=== PATIENT | female | born 1960 | race Caucasian/White ===

== ENCOUNTER → 2020-08-21 | Outpatient (CLI) | payer BC ==
--- NOTE | 2020-08-21 12:14 | MM ---
Reason for exam: screening (asymptomatic). Last mammogram was performed 7 years and 6 months ago. History: Patient is postmenopausal. Took hormonal contraceptives for 8 years. Taking estrogen for 6 months beginning at age 49. Physical Findings: A clinical breast exam by your physician is recommended on an annual basis and results should be correlated with mammographic findings. MG Screening Mammo w CAD Bilateral CC and MLO view(s) were taken. Prior study comparison: February 13, 2013, bilateral digital screening mammo w/CAD. The breast tissue is heterogeneously dense. This may lower the sensitivity of mammography. Finding: There are typically benign round, grouped/clustered calcifications in the left breast. There is no discrete abnormality. ASSESSMENT: Benign, BI-RAD 2 RECOMMENDATION: Routine screening mammogram of both breasts in 1 year.
== END | disposition home or self-care (01) ==
LOC: RADMAMWWP 09:43
PROVIDERS: ATTEND Internal Medicine
DX: Z12.31 Encounter for screening mammogram for malignant neoplasm of breast (principal)
CPT/HCPCS: 77067

== ENCOUNTER 2020-08-28 05:53 | Inpatient (IN) | payer BC, OTHER ==
[2020-08-28] MEDS ORDERED: PANTOPRAZOLE 40 MG/10 ML VIAL IVP STA (06:09)
[2020-08-28] MEDS ORDERED: SODIUM CHLORIDE 0.9% 500 ML 500 ML IV STA (06:09)
[2020-08-28] MEDS ORDERED: ASPIRIN 81 MG PO STA (06:32)
[2020-08-28 06:42] LABS: Basophils # (A) 0.1 k/uL (0-0.2); Basophils % (A) 1 %; Eosinophils # (A) 0.5 k/uL (0-0.7); Eosinophils % (A) 3 %; HGB 16.7 gm/dL (11.4-16.0); Lymphocytes % (A) 21 %; MCH 33.1 pg (25.0-35.0); MCHC 34.1 g/dL (31.0-37.0); MCV 97.1 fL (80.0-100.0); Mean Platelet Volume 7.5; Monocytes # (A) 0.7 k/uL (0-1.0); Monocytes % (A) 5 %; Neutrophils # (A) 10.2 k/uL (1.3-7.7); Neutrophils % (A) 69 %; Platelet Count 399 k/uL (150-450); RBC 5.05 m/uL (3.80-5.40); RDW 12.9 % (11.5-15.5); WBC 14.7 k/uL (3.8-10.6)
--- NOTE | 2020-08-28 06:45 | ED ---
Abdominal Pain HPI - General Chief Complaint: Abdominal Pain Stated Complaint: upper abd pain Time Seen by Provider: 08/28/20 06:00 Source: patient Mode of arrival: ambulatory Limitations: no limitations - History of Present Illness Initial Comments: 60yo female with history of HLD and cholecystectomy presenting for cc of epigastric abdominal pain x 1 day. Pt states that she has had epigastric pain that began yesterday morning after eating buttered toast. SHe states she does not have a gallbladder but the pain felt somewhat similar, she states she was also belching and felt like she had indigestion. Denies hx of indigestion/GERD. Patient states that the symptoms seeme to go away but were again present this AM. She states she was concerned and thus presented to the ER for further evaluation. Denies chest pressure, arm pain, jaw pain, vomiting, diarrhea. Denies fevers, lower abdominal pain, shortness of breath. Pain subsided on arrival. - Related Data Home Medications Medication Instructions Recorded Confirmed Atorvastatin [Lipitor] 10 mg PO HS 08/28/20 08/28/20 Allergies Allergy/AdvReac Type Severity Reaction Status Date / Time codeine AdvReac Nausea & Verified 08/28/20 08:13 Vomiting Review of Systems ROS Statement: Those systems with pertinent positive or pertinent negative responses have been documented in the HPI. ROS Other: All systems not noted in ROS Statement are negative. Past Medical History Past Medical History: Hyperlipidemia History of Any Multi-Drug Resistant Organisms: None Reported Past Surgical History: Cholecystectomy Past Psychological History: No Psychological Hx Reported Smoking Status: Current every day smoker Past Alcohol Use History: None Reported Past Drug Use History: None Reported General Exam - General Exam Comments Initial Comments: General: The patient is awake and alert, in no distress Eye: Pupils are equal, round and reactive to light, extra-ocular movements are intact. No nystagmus. There is normal conjunctiva bilaterally. No signs of icterus. Ears, nose, mouth and throat: There are moist mucous membranes and no oral lesions. Neck: The neck is supple, there is no tenderness or JVD. Cardiovascular: There is a regular rate and rhythm. No murmur, rub or gallop is appreciated. Respiratory: Lungs are clear to auscultation, respirations are non-labored, breath sounds are equal. No wheezes, stridor, rales, or rhonchi. Gastrointestinal: Soft, non-distended, epigastric tenderness to palpation of the abdomen, abdomen without masses or organomegaly noted. There is no rebound or guarding present. Musculoskeletal: Normal ROM, no tenderness. Strength 5/5. Sensation intact. Radial pulses equal bilaterally 2+. Neurological: A&O x 3. CN II-XII intact, There are no obvious motor or sensory deficits. Coordination appears grossly intact. Speech is normal. Skin: Skin is warm and dry and no rashes or lesions are noted. Psychiatric: Cooperative, appropriate mood & affect, normal judgment. Limitations: no limitations Course Vital Signs 08/28/20 08/28/20 06:00 07:22 Temperature 98.2 F 97.9 F Pulse Rate 92 70 Respiratory 18 18 Rate Blood Pressure 169/97 147/75 O2 Sat by Pulse 96 98 Oximetry - Reevaluation(s) Reevaluation #1: EKG immediately showed to my attending Dr Blue, who recommended a repeat EKG in 10 minutes. Pt did not have current symptoms 08/28/20 0623 Reevaluation #2: EKG repeated and reviewed with attending, Dr Blue. Recommended admission for serial troponins. Pt given aspirin. 08/28/20 0640 Reevaluation #3: Discussed with new attending Dr. Coley who reviewed both EKGs, consulted cardiology- 08/28/20 07:53 Medical Decision Making - Medical Decision Making 60yo female presenting for cc of epigastric pain, belching, indigestion. Patient EKG initially had findings concerning of ischemia, I reviewed the EKG with attending Dr. Blue, recommended repeat. Troponin elevated. CXR possible infiltrate. Heparin initiated, when reviewed the troponin discussed case with Dr. Coley who reviewed initial 2 EKGs. He consulted cardiology immediately, patient is to go to [facility]. Cardiology presented to the ER to evaluate patient at 8:00AM. - Lab Data Result diagrams: 08/28/20 06:29 08/28/20 06:29 Lab Results 08/28/20 08/28/20 08/28/20 Range/Units 06:29 06:29 06:29 WBC 14.7 H (3.8-10.6) k/uL RBC 5.05 (3.80-5.40) m/uL Hgb 16.7 H (11.4-16.0) gm/dL Hct 49.0 H (34.0-46.0) % MCV 97.1 (80.0-100.0) fL MCH 33.1 (25.0-35.0) pg MCHC 34.1 (31.0-37.0) g/dL RDW 12.9 (11.5-15.5) % Plt Count 399 (150-450) k/uL Neutrophils % 69 % Lymphocytes % 21 % Monocytes % 5 % Eosinophils % 3 % Basophils % 1 % Neutrophils # 10.2 H (1.3-7.7) k/uL Lymphocytes # 3.0 (1.0-4.8) k/uL Monocytes # 0.7 (0-1.0) k/uL Eosinophils # 0.5 (0-0.7) k/uL Basophils # 0.1 (0-0.2) k/uL Sodium 141 (137-145) mmol/L Potassium 4.5 (3.5-5.1) mmol/L Chloride 110 H (98-107) mmol/L Carbon Dioxide 23 (22-30) mmol/L Anion Gap 8 mmol/L BUN 17 (7-17) mg/dL Creatinine 0.74 (0.52-1.04) mg/dL Est GFR (CKD-EPI)AfAm >90 (>60 ml/min/1.73 sqM) Est GFR (CKD-EPI)NonAf 88 (>60 ml/min/1.73 sqM) Glucose 134 H (74-99) mg/dL Calcium 9.9 (8.4-10.2) mg/dL Total Bilirubin 0.5 (0.2-1.3) mg/dL AST 34 (14-36) U/L ALT 41 H (4-34) U/L Alkaline Phosphatase 91 (38-126) U/L Troponin I (0.000-0.034) ng/mL Total Protein 7.3 (6.3-8.2) g/dL Albumin 4.6 (3.5-5.0) g/dL Amylase 48 (30-110) U/L Lipase 77 (23-300) U/L Urine Color Yellow Urine Appearance Cloudy H (Clear) Urine pH 5.0 (5.0-8.0) Ur Specific [place] 1.020 (1.001-1.035) Urine Protein Negative (Negative) Urine Glucose (UA) Negative (Negative) Urine Ketones Negative (Negative) Urine Blood Small H (Negative) Urine Nitrite Negative (Negative) Urine Bilirubin Negative (Negative) Urine Urobilinogen <2.0 (<2.0) mg/dL Ur Leukocyte Esterase Negative (Negative) Urine RBC 1 (0-5) /hpf Urine WBC 2 (0-5) /hpf Ur Squamous Epith Cells 6 H (0-4) /hpf Urine Bacteria Occasional H (None) /hpf Urine Mucus Rare H (None) /hpf 08/28/20 Range/Units 06:29 WBC (3.8-10.6) k/uL RBC (3.80-5.40) m/uL Hgb (11.4-16.0) gm/dL Hct (34.0-46.0) % MCV (80.0-100.0) fL MCH (25.0-35.0) pg MCHC (31.0-37.0) g/dL RDW (11.5-15.5) % Plt Count (150-450) k/uL Neutrophils % % Lymphocytes % % Monocytes % % Eosinophils % % Basophils % % Neutrophils # (1.3-7.7) k/uL Lymphocytes # (1.0-4.8) k/uL Monocytes # (0-1.0) k/uL Eosinophils # (0-0.7) k/uL Basophils # (0-0.2) k/uL Sodium (137-145) mmol/L Potassium (3.5-5.1) mmol/L Chloride (98-107) mmol/L Carbon Dioxide (22-30) mmol/L Anion Gap mmol/L BUN (7-17) mg/dL Creatinine (0.52-1.04) mg/dL Est GFR (CKD-EPI)AfAm (>60 ml/min/1.73 sqM) Est GFR (CKD-EPI)NonAf (>60 ml/min/1.73 sqM) Glucose (74-99) mg/dL Calcium (8.4-10.2) mg/dL Total Bilirubin (0.2-1.3) mg/dL AST (14-36) U/L ALT (4-34) U/L Alkaline Phosphatase (38-126) U/L Troponin I 0.839 H* (0.000-0.034) ng/mL Total Protein (6.3-8.2) g/dL Albumin (3.5-5.0) g/dL Amylase (30-110) U/L Lipase (23-300) U/L Urine Color Urine Appearance (Clear) Urine pH (5.0-8.0) Ur Specific [place] (1.001-1.035) Urine Protein (Negative) Urine Glucose (UA) (Negative) Urine Ketones (Negative) Urine Blood (Negative) Urine Nitrite (Negative) Urine Bilirubin (Negative) Urine Urobilinogen (<2.0) mg/dL Ur Leukocyte Esterase (Negative) Urine RBC (0-5) /hpf Urine WBC (0-5) /hpf Ur Squamous Epith Cells (0-4) /hpf Urine Bacteria (None) /hpf Urine Mucus (None) /hpf Disposition Clinical Impression: Epigastric pain, NSTEMI (non-ST elevated myocardial infarction) Disposition: ADMITTED IP TO THIS [facility] Condition: Serious Is patient prescribed a controlled substance at d/c from ED?: No Referrals: Penny Chowdary MD [Primary Care Provider] - 1-2 days Time of Disposition: 07:51 Decision to Admit Reason: Admit from EC Decision Date: 08/28/20 Decision Time: 07:51
[2020-08-28 06:50] LABS: Appearance,Urine Cloudy (Clear); Bacteria,Urine Occasional /hpf; Bilirubin,Urine Negative (Negative); Blood,Urine Small (Negative); Color,Urine Yellow; Glucose,Urine (UA) Negative (Negative); Ketones,Urine Negative (Negative); Leukocyte Esterase,Urine Negative (Negative); Mucus,Urine Rare /hpf; Nitrite,Urine Negative (Negative); Protein,Urine Negative (Negative); RBC,Urine 1 /hpf (0-5); Squamous Epithelial Cell,Urine 6 /hpf (0-4); Urobilinogen,Urine <2.0 mg/dL (<2.0); WBC,Urine 2 /hpf (0-5)
[2020-08-28 06:51] LABS: ALT 41 U/L (4-34); AST 34 U/L (14-36); African American GFR (CKD) >90 (>60 ml/min/1.73 sqM); Albumin 4.6 g/dL (3.5-5.0); Alkaline Phosphatase 91 U/L (38-126); Amylase 48 U/L (30-110); Anion Gap 8 mmol/L; Blood Urea Nitrogen 17 mg/dL (7-17); Calcium 9.9 mg/dL (8.4-10.2); Carbon Dioxide 23 mmol/L (22-30); Chloride 110 mmol/L (98-107); Glucose 134 mg/dL (74-99); Non-African American GFR(CKD) 88 (>60 ml/min/1.73 sqM); Potassium 4.5 mmol/L (3.5-5.1); Sodium 141 mmol/L (137-145); Total Bilirubin 0.5 mg/dL (0.2-1.3); Total Protein 7.3 g/dL (6.3-8.2)
--- NOTE | 2020-08-28 07:18 | XR ---
EXAMINATION TYPE: XR chest 2V DATE OF EXAM: 08/28/2020 COMPARISON: None INDICATION: Epigastric pain TECHNIQUE: Frontal and lateral views of the chest are obtained. FINDINGS: The heart size is borderline prominent. The pulmonary vasculature is normal. Minimal subsegmental atelectasis may be at the right base. Lungs are otherwise clear.. IMPRESSION: 1. Suggestion of minimal infiltrate at the right lung base. Consider subsegmental atelectasis.
[2020-08-28] MEDS: SODIUM CHLORIDE 0.9% 1,000 ML IV SCH ×2 (07:35→21:18)
[2020-08-28] MEDS ORDERED: HEPARIN SODIUM,PORCINE 5,000 UNIT/ML 1 ML VIAL IV PRN (07:47)
[2020-08-28] MEDS ORDERED: HEPARIN SODIUM,PORCINE 5,000 UNIT/ML 1 ML VIAL IV ONE (07:47)
[2020-08-28] MEDS ORDERED: NITROGLYCERIN OINT 1 INCH/GM PACKET TOPICAL STA (07:49)
[2020-08-28] MEDS ORDERED: HEPARIN SOD,PORK IN 0.45% NACL 25,000 UNIT in 0.45% NACL 1 250ML.BAG IV SCH (08:00)
--- NOTE | 2020-08-28 08:02 | CT ---
EXAMINATION TYPE: CT abdomen pelvis w con DATE OF EXAM: 08/28/2020 COMPARISON: None INDICATION: Heartburn, epigastric pain DLP: 1327.4 mGycm, Automated exposure control for dose reduction was used. CONTRAST: 100 mL of Isovue 300. Study performed without Oral Contrast TECHNIQUE: Axial images were obtained from above the diaphragm to the pubic rami in the axial plane a t 5 mm thick sections. Reconstructed images are reviewed on the computer in the coronal plane. FINDINGS: Limited CT sections are obtained the lung bases. The lung bases are clear. CT ABDOMEN: Liver: Normal Spleen: Normal Pancreas: Normal Adrenal glands: The adrenal glands are normal. Gallbladder: Surgically absent Kidneys: No masses are evident. No hydronephrosis is present. No cysts are present. Delayed images were obtained through the kidneys, which remain unremarkable. Aorta: Vascular calcification is within the aorta. Inferior vena cava: Normal. CT PELVIS: Loops of bowel within the abdomen and pelvis are normal. Scattered diverticuli are present without ac [place] diverticulitis. No adjacent inflammatory changes are evident. Study is without oral contrast l imiting bowel evaluation. Appendix: Normal as visualized. Urinary bladder: Normal. Genitourinary structures: Uterus and ovaries are not identified. Osseous structures: No suspicious lytic or sclerotic lesions. IMPRESSIONS: 1. Diverticulosis without acute diverticulitis. 2. No suspicious abnormality to account for the gastric pain
[2020-08-28] MEDS ORDERED: NITROGLYCERIN SL TABS 0.4 MG TAB SUBLINGUAL PRN ×2 (08:06→09:40)
[2020-08-28] MEDS ORDERED: ATORVASTATIN 80 MG TAB PO STA (08:15)
[2020-08-28] MEDS ORDERED: ALPRAZolam 0.5 MG TAB PO PRN (08:15)
[2020-08-28] MEDS ORDERED: ALPRAZolam 0.25 MG TAB PO PRN (08:15)
[2020-08-28] MEDS ORDERED: SODIUM CHLORIDE 0.9% 1,000 ML in EMPTY BAG 1 BAG IV ONE (08:15)
[2020-08-28] MEDS ORDERED: IV FLUID CONTINUATION 1,000 ML IV ONE (08:30)
[2020-08-28] MEDS ORDERED: LIDOCAINE 1% INJ 10MG/ML (20 ML MDV) ONE (08:42)
[2020-08-28] MEDS ORDERED: fentaNYL (PF) 50 MCG/ML 2 ML AMP ONE (08:43)
[2020-08-28] MEDS ORDERED: VERAPAMIL 2.5 MG/ML 2 ML AMP ONE ×2 (08:43→09:07)
[2020-08-28] MEDS: fentaNYL (PF) 50 MCG/ML 2 ML AMP IV ONE ×2 (08:48→09:05)
[2020-08-28] MEDS: MIDAZOLAM 2 MG/2 ML VIAL IV ONE ×2 (08:48→09:05)
[2020-08-28] MEDS ORDERED: LIDOCAINE 1% INJ 10MG/ML (20 ML MDV) SQ ONE (08:48)
[2020-08-28] MEDS: VERAPAMIL SYRINGE (5 MG/10 ML) INTRAARTER ONE ×2 (08:50→09:03)
[2020-08-28] MEDS ORDERED: TICAGRELOR 90 MG TAB ONE (09:02)
[2020-08-28] MEDS ORDERED: TICAGRELOR 90 MG TAB PO ONE (09:06)
[2020-08-28] MEDS ORDERED: HEPARIN SODIUM 1,000 UN/ML (10ML VL) ONE (09:09)
--- NOTE | 2020-08-28 09:16 | P.CARDCATH ---
Date of Procedure: 08/28/20 Preoperative Diagnosis: Acute anterior wall myocardial infarction Postoperative Diagnosis: Critical stenosis involving the mid LAD Procedure(s) Performed: Left heart catheterization without left ventriculography Description of Procedure: HISTORY: This is a 60-year-old female with history of hypertension who came to the emergency room with complaints of chest pains and epigastric pain starting around 10 PM last night. Her initial EKG showed ST elevations in the anterior leads suggestive of acute myocardial infarction. Patient was treated with nitrates and subsequently EKG showed improvement in a stable segment elevation. Patient however continued to have pain and troponin was abnormal with persistent ST-T changes. Patient is advised to have a cardiac catheterization for definitive diagnosis CONSENT:I have discussed the risks, benefits and alternative therapies for the above-mentioned procedure and for both sedation/analgesia as well as necessary blood product administration, if indicated, as they pertain to this patient. The patient has indicated understanding and acceptance of the risks and procedures discussed. PROCEDURE: Patient was brought to the lab in a fasting state. Patient was given some IV sedation. The right wrist is infiltrated with lidocaine and right radial artery was entered using Seldinger technique. A 6-[place] catheter was left in place and selective coronary arteriography was performed. Patient tolerated the procedure well. No immediate complications were noted . Patient went on to have stent placement of the left anterior descending coronary artery Conscious Sedation: Versed 1mg Fentanyl 25 g Duration 13minutes HEMODYNAMICS: The aortic pressure is about 120/65. The left ventricular end- diastolic pressure was not measured SELECTIVE CORONARY ARTERIOGRAPHY: LEFT MAIN: Normal length and free of occlusive disease THE LEFT ANTERIOR DESCENDING CORONARY ARTERY: . This is a good caliber vessel with a 99% stenosis in the midportion THE LEFT CIRCUMFLEX AND IS CORONARY ARTERY: . This is a good caliber vessel. Free of occlusive disease THE RIGHT CORONARY ARTERY: Is a good caliber and codominant vessel without any significant focal occlusive disease LEFT VENTRICULOGRAPHY: Not performed FINAL IMPRESSION: . Critical lesion involving the mid LAD PLAN: Stent placement of the LAD PROGNOSIS: Fair
[2020-08-28] MEDS ORDERED: IOPAMIDOL-370 125ML BTL INJ ONE (09:29)
[2020-08-28] MEDS ORDERED: NITROGLYCERIN 1000MCG/10ML SYRINGE INTRACORON ONE (09:30)
[2020-08-28] MEDS ORDERED: IOPAMIDOL-370 100ML BTL INJ ONE (09:34)
[2020-08-28] MEDS ORDERED: MAG HYDROX/AL HYDROX/SIMETH 30 ML CUP PO PRN (09:40)
[2020-08-28] MEDS ORDERED: ZOLPIDEM 5 MG TAB PO PRN (09:40)
[2020-08-28] MEDS ORDERED: ATROPINE SULFATE 0.1 MG/ML 10ML SYRINGE IV PRN (09:40)
[2020-08-28] MEDS ORDERED: RX INFO: IV CONTRAST WAS GIVEN 1 EACH MISC MISCELLANE PRN (09:40)
[2020-08-28 10:16] LABS: Glucose,Whole Blood 111 mg/dL (75-99)
--- NOTE | 2020-08-28 10:39 | P.CRDCN ---
History of Present Illness History of present illness: HISTORY OF PRESENTING ILLNESS This is a pleasant 60-year-old female past medical history significant for dyslipidemia and chronic nicotine dependence. She does not follow with a ca rdiologist for any reason. We have been asked to see in consultation for chest pain. She states yesterday morning after eating a piece of toast she developed a pain in the epigastric region and under the left breast. It was described as a pressure type sensation. She does suffer from reflux disease intermittently and has had her gallbladder out previously. Typically she can drink a glass of milk and her symptoms will subside. The milk did help somewhat but not entirely. She also noticed frequent belching throughout the day. She felt some radiation through to her back.She denies associated shortness of breath, dizziness or palpitations. She did have some mild nausea. Her pain persisted through the night prompting her bring her to the hospital this morning. On arrival she was having ongoing epigastric discomfort and was given IV Protonix that did mildly improve her symptoms. Initial EKG on admission revealed sinus mechanism with mild ST elevations in the anterior leads. Repeat EKG was obtained 15 minutes later the mouth elevations have improved. Chest x-ray reveals a minimal infiltrate at the right lung base possibly related to atelectasis. CT abdomen pelvis reveals diverticulosis without acute diverticulitis and no suspicious abnormality. Laboratory data reviewed, WBC 14.7, hemoglobin 16.7, platelets 399, sodium 141, potassium 4.5, creatinine 0.74. Daily medications include atorvastatin 10 mg at bedtime. She states she has never had a heart catheterization or stress test in the past. She has a sister who needs a valve replaced but unfortunately has lung cancer. REVIEW OF SYSTEMS At the time of my exam: CONSTITUTIONAL: Denies fever or chills. CARDIOVASCULAR: Denies chest pain, shortness of breath, orthopnea, PND or palpitations. RESPIRATORY: Denies cough. GASTROINTESTINAL: Complains of epigastric pain. Denies abdominal pain, diarrhea, constipation, nausea or vomiting. MUSCULOSKELETAL: Denies myalgias. NEUROLOGIC: Denies numbness, tingling or weakness. ENDOCRINE: Denies fatigue, weight change, polydipsia or polyurina. GENITOURINARY: Denies burning, hematuria or urgency with micturation. HEMATOLOGIC: Denies history of anemia or bleeding. PHYSICAL EXAMINATION Blood pressure 147/100 heart rate 87 afebrile and maintaining oxygen saturation on room air. CONSTITUTIONAL: No apparent distress. HEENT: Head is normocephalic. Pupils are equal, round. Sclerae anicteric. Mucous membranes of the mouth are moist. No JVD. No carotid bruit. CHEST EXAMINATION: Lungs are clear to auscultation. No chest wall tenderness is noted on palpation or with deep breathing. HEART EXAMINATION: Regular rate and rhythm. S1, S2 heard. No murmurs, gallops or rub. ABDOMEN: Soft, nontender. Positive bowel sounds. EXTREMITIES: 2+ peripheral pulses, no lower extremity edema and no calf tenderness. NEUROLOGIC EXAMINATION: Patient is awake, alert and oriented x3. ASSESSMENT ST-elevated myocardial infarction Leukocytosis Dyslipidemia Chronic nicotine dependence PLAN Recommend prompt transfer to the [facility] for cardiac catheterization. I have discussed the risks, benefits and alternative therapies for the above-mentioned procedure and for both sedation/analgesia as well as necessary blood product administration, if indicated, as they pertain to this patient. The patient has indicated understanding and acceptance of the risks and procedures discussed. Questions have been answered appropriately to the patient and her who is at the bedside. Aspirin was given on admission and heparin infusion currently running. Give atorvastatin 80 mg x1 now. Obtain 2D echocardiogram and doppler study to assess cardiac structure and function. Further recommendations to follow based on clinical course. Thank you kindly for this consultation. Nurse Practitioner note has been reviewed, I agree with a documented findings and plan of care. Patient was seen and examined. Past Medical History Past Medical History: Hyperlipidemia History of Any Multi-Drug Resistant Organisms: None Reported Past Surgical History: Cholecystectomy Past Psychological History: No Psychological Hx Reported Smoking Status: Current every day smoker Past Alcohol Use History: None Reported Past Drug Use History: None Reported Medications and Allergies Home Medications Medication Instructions Recorded Confirmed Type Atorvastatin [Lipitor] 10 mg PO HS 08/28/20 08/28/20 History Allergies Allergy/AdvReac Type Severity Reaction Status Date / Time codeine AdvReac Nausea & Verified 08/28/20 08:13 Vomiting Physical Exam Vitals: Vital Signs Temp Pulse Resp BP Pulse Ox 08/28/20 10:02 87 18 147/100 96 08/28/20 08:17 100 20 140/83 95 08/28/20 07:22 97.9 F 70 18 147/75 98 08/28/20 06:00 98.2 F 92 18 169/97 96 Intake and Output 10/14/20 10/15/20 10/15/20 22:59 06:59 14:59 Intake Total 500 Balance 500 Intake: IV 500 Other: Weight 90.174 kg Results 08/28/20 06:29 08/28/20 06:29 Cardiac Enzymes 08/28/20 08/28/20 Range/Units 06:29 06:29 AST 34 (14-36) U/L Troponin I 0.839 H* (0.000-0.034) ng/mL CBC 08/28/20 Range/Units 06:29 WBC 14.7 H (3.8-10.6) k/uL RBC 5.05 (3.80-5.40) m/uL Hgb 16.7 H (11.4-16.0) gm/dL Hct 49.0 H (34.0-46.0) % Plt Count 399 (150-450) k/uL Comprehensive Metabolic Panel 08/28/20 Range/Units 06:29 Sodium 141 (137-145) mmol/L Potassium 4.5 (3.5-5.1) mmol/L Chloride 110 H (98-107) mmol/L Carbon Dioxide 23 (22-30) mmol/L BUN 17 (7-17) mg/dL Creatinine 0.74 (0.52-1.04) mg/dL Glucose 134 H (74-99) mg/dL Calcium 9.9 (8.4-10.2) mg/dL AST 34 (14-36) U/L ALT 41 H (4-34) U/L Alkaline Phosphatase 91 (38-126) U/L Total Protein 7.3 (6.3-8.2) g/dL Albumin 4.6 (3.5-5.0) g/dL Current Medications Generic Name Dose Route Start Last Admin Trade Name Freq PRN Reason Stop Dose Admin Al Hydroxide/Mg Hydroxide 30 ml 08/28/20 09:40 Mag Hydrox/Al Hydrox/Simeth 30 Ml Cup PO Q4HR PRN Heartburn Alprazolam 0.25 mg 08/28/20 08:15 Alprazolam 0.25 Mg Tab PO Q6HR PRN Mild Anxiety Alprazolam 0.5 mg 08/28/20 08:15 Alprazolam 0.5 Mg Tab PO Q6HR PRN Moderate Anxiety Aspirin 81 mg 08/29/20 09:00 Aspirin 81 Mg PO DAILY [facility] Atorvastatin Calcium 80 mg 08/28/20 21:00 Atorvastatin 80 Mg Tab PO HS [place] Atropine Sulfate 0.5 mg 08/28/20 09:40 Atropine Sulfate 0.1 Mg/Ml 10ml Syringe IV ONCE PRN Symptomatic Bradycardia Sodium Chloride 1,000 mls @ 75 mls/hr 08/28/20 07:00 08/28/20 07:35 Saline 0.9% IV 75 mls/hr .[id number] [place] Administration Sodium Chloride 1,000 ml/ IV 1,000 mls @ 90.174 mls/hr 08/28/20 08:15 08/28/20 10:09 Solution IV 08/28/20 19:20 Not Given .Q11H6M ONE 1 ML/KG/HR Metoprolol Tartrate 25 mg 08/28/20 21:00 Metoprolol Tartrate 25 Mg Tab PO BID [facility] Miscellaneous Information 1 each 08/28/20 09:40 Rx Info: Iv Contrast Was Given 1 Each Misc MISCELLANE 08/30/20 09:40 DAILY PRN Per Protocol Nitroglycerin 0.4 mg 08/28/20 09:40 Nitroglycerin Sl Tabs 0.4 Mg Tab SUBLINGUAL Q5M PRN Chest Pain Ticagrelor 90 mg 08/28/20 21:00 Ticagrelor 90 Mg Tab PO BID [facility] Zolpidem Tartrate 5 mg 08/28/20 09:40 Zolpidem 5 Mg Tab PO HS PRN Insomnia Intake and Output 08/27/20 08/28/20 08/28/20 22:59 06:59 14:59 Intake Total 500 Balance 500 Intake: IV 500 Other: Weight 90.174 kg 08/28/20 06:29 08/28/20 06:29
--- NOTE | 2020-08-28 11:24 | P.HPIM ---
History of Present Illness This is a pleasant 60 years old female with past medical history of hyperlipidemia and cigarette smoker. Presents because of Joleen sensation since yesterday which became more severe overnight associated with some numbness in her extremity so she came to the emergency room when she found to have a STEMI and "has been called and patient went emergently to cardiac cath. She is status post stent placement to the LAD. Postprocedure she was in the ICU, resting comfortably in bed with at bedside, she is a pleasant with no chest pain or heartburn. No shortness of breath or any other symptom. She admits to smoking about one pack per day, patient consult on was to quit but she declined nicotine patch. No alcohol or illicit drugs Vitals and labs are reviewed. She has mild leukocytosis of 14.7 K. Review of Systems CONSTITUTIONAL: No fever, no malaise, no fatigue. HEENT: No recent visual problems or hearing problems. Denied any sore throat. CARDIOVASCULAR: No orthopnea, PND, no palpitations, no syncope. PULMONARY: No shortness of breath, no cough, no hemoptysis. GASTROINTESTINAL: No diarrhea, no nausea, no vomiting, no abdominal pain. Normoactive bowel sounds. NEUROLOGICAL: No headaches, no weakness, no numbness. HEMATOLOGICAL: Denies any bleeding or petechiae. GENITOURINARY: Denies any burning micturition, frequency, or urgency. MUSCULOSKELETAL/RHEUMATOLOGICAL: Denies any joint pain, swelling, or any muscle pain. ENDOCRINE: Denies any polyuria or polydipsia. Past Medical History Past Medical History: Hyperlipidemia History of Any Multi-Drug Resistant Organisms: None Reported Past Surgical History: Cholecystectomy Past Psychological History: No Psychological Hx Reported Smoking Status: Current every day smoker Past Alcohol Use History: None Reported Past Drug Use History: None Reported Medications and Allergies Home Medications Medication Instructions Recorded Confirmed Type Atorvastatin [Lipitor] 10 mg PO HS 08/28/20 08/28/20 History Allergies Allergy/AdvReac Type Severity Reaction Status Date / Time codeine AdvReac Nausea & Verified 08/28/20 08:13 Vomiting Physical Exam Vitals: Vital Signs Temp Pulse Resp BP Pulse Ox 08/28/20 10:02 87 18 147/100 96 08/28/20 08:17 100 20 140/83 95 08/28/20 07:22 97.9 F 70 18 147/75 98 08/28/20 06:00 98.2 F 92 18 169/97 96 Intake and Output 08/27/20 08/28/20 08/28/20 22:59 06:59 14:59 Intake Total 500 Balance 500 Intake: IV 500 Other: Weight 90.174 kg GENERAL: The patient is alert and oriented x3, not in any acute distress. Well developed, well nourished. HEENT: Pupils are round and equally reacting to light. EOMI. No scleral icterus. No conjunctival pallor. Normocephalic, atraumatic. No pharyngeal erythema. No thyromegaly. CARDIOVASCULAR: S1 and S2 present. No murmurs, rubs, or gallops. PULMONARY: Chest is clear to auscultation, no wheezing or crackles. ABDOMEN: Soft, nontender, nondistended, normoactive bowel sounds. No palpable organomegaly. MUSCULOSKELETAL: No joint swelling or deformity. EXTREMITIES: No cyanosis, clubbing, or pedal edema. NEUROLOGICAL: Gross neurological examination did not reveal any focal deficits. SKIN: No rashes. No petechiae Results CBC & Chem 7: 08/28/20 06:29 08/28/20 06:29 Labs: Abnormal Lab Results - Last 24 Hours (Table) 08/28/20 08/28/20 08/28/20 Range/Units 06:29 06:29 06:29 WBC 14.7 H (3.8-10.6) k/uL Hgb 16.7 H (11.4-16.0) gm/dL Hct 49.0 H (34.0-46.0) % Neutrophils # 10.2 H (1.3-7.7) k/uL Chloride 110 H (98-107) mmol/L Glucose 134 H (74-99) mg/dL POC Glucose (mg/dL) (75-99) mg/dL ALT 41 H (4-34) U/L Troponin I (0.000-0.034) ng/mL Urine Appearance Cloudy H (Clear) Urine Blood Small H (Negative) Ur Squamous Epith Cells 6 H (0-4) /hpf Urine Bacteria Occasional H (None) /hpf Urine Mucus Rare H (None) /hpf 08/28/20 08/28/20 Range/Units 06:29 10:15 WBC (3.8-10.6) k/uL Hgb (11.4-16.0) gm/dL Hct (34.0-46.0) % Neutrophils # (1.3-7.7) k/uL Chloride (98-107) mmol/L Glucose (74-99) mg/dL POC Glucose (mg/dL) 111 H (75-99) mg/dL ALT (4-34) U/L Troponin I 0.839 H* (0.000-0.034) ng/mL Urine Appearance (Clear) Urine Blood (Negative) Ur Squamous Epith Cells (0-4) /hpf Urine Bacteria (None) /hpf Urine Mucus (None) /hpf Assessment and Plan Assessment: Acute STEMI, status post cardiac cath and stent placement in the LAD:Continue with dual anti-platelet therapy and cardiology consult recommendation Leukocytosis, mostly reactive secondary to above Nicotine dependence Hyperlipidemia DVT prophylaxis, subcutaneous heparin GI prophylaxis: Pepcid
[2020-08-28 12:02] VITALS: BMI 33.0
--- NOTE | 2020-08-28 12:46 | ECHOF ---
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 do after cath MEASUREMENTS -------- HEIGHT: 165.1 cm WEIGHT: 89.8 kg BP: RVIDd: 2.7 cm (< 3.3) IVSd: 0.8 cm (0.6 - 1.1) LVIDd: 5.0 cm (3.9 - 5.3) LVPWd: 1.0 cm (0.6 - 1.1) IVSs: 1.3 cm LVIDs: 4.2 cm LVPWs: 1.0 cm LA Diam: 4.0 cm (2.7 - 3.8) LAESV Index (A-L): 20.05 ml/m Ao Diam: 2.7 cm (2.0 - 3.7) AV Cusp: 1.5 cm (1.5 - 2.6) MV EXCURSION: 15.488 mm (> 18.000) MV EF SLOPE: 77 mm/s (70 - 150) EPSS: 0.8 cm MV E Jose: 0.80 m/s MV DecT: 175 ms MV A Jose: 1.17 m/s MV E/A Ratio: 0.69 RAP: 5.00 mmHg RVSP: 35.66 mmHg FINDINGS -------- Sinus rhythm. This was a techncally difficult study with suboptimal views, , Definity utilized for enhancement of i mages. The left ventricular size is normal. Left ventricular wall thickness is normal. Overall left vent ricular systolic function is moderately impaired with, an EF between 35 - 40 %. Mid anterior LV wal l motion is hypokinetic. Mid anteroseptal LV wall motion is hypokinetic. Apical anterior LV wal l motion is hypokinetic. Apical lateral LV wall motion is hypokinetic. Apical inferior LV wall motion is hypokinetic. Apical septum LV wall motion is hypokinetic. The right ventricle is normal in size. Normal LA size by volume 22+/-6 ml/m2. The right atrial size is normal. There is mild aortic valve sclerosis. There is no evidence of aortic regurgitation. Mild mitral annular calcification present. Mild mitral regurgitation is present. Mild tricuspid regurgitation present. Right ventricular systolic pressure is normal at < 35 mmHg. Trace/mild (physiologic) pulmonic regurgitation. The aortic root size is normal. Echo free space indicative of a pericardial fat pad. CONCLUSIONS -------- 1. Left ventricular wall thickness is normal. 2. Overall left ventricular systolic function is moderately impaired with, an EF between 35 - 40 %. 3. Mid anterior LV wall motion is hypokinetic. 4. Mid anteroseptal LV wall motion is hypokinetic. 5. Apical anterior LV wall motion is hypokinetic. 6. Apical lateral LV wall motion is hypokinetic. 7. Apical inferior LV wall motion is hypokinetic. 8. Apical septum LV wall motion is hypokinetic. 9. Normal LA size by volume 22+/-6 ml/m2. 10. There is mild aortic valve sclerosis. 11. Mild mitral annular calcification present. 12. Mild mitral regurgitation is present. 13. Mild tricuspid regurgitation present. 14. Trace/mild (physiologic) pulmonic regurgitation. 15. Echo free space indicative of a pericardial fat pad. RECREATIONAL ASSISTANT: Marielle Butt RDCS
[2020-08-28] MEDS: lisinopriL 5 MG TAB PO SCH (14:59)
[2020-08-28] MEDS: ATORVASTATIN 80 MG TAB PO SCH (20:00)
[2020-08-28] MEDS: HEPARIN SODIUM,PORCINE 5,000 UNIT/ML 1 ML VIAL SQ SCH (20:00)
[2020-08-28] MEDS: TICAGRELOR 90 MG TAB PO SCH (20:00)
[2020-08-28] MEDS: FAMOTIDINE 20 MG TAB PO SCH (20:01)
[2020-08-28] MEDS: METOPROLOL TARTRATE 25 MG TAB PO SCH (20:01)
--- NOTE | 2020-08-28 21:20 | P.PRCINT ---
Percutaneous Coronary Int. - Percutaneous Coronary Intervention Percutaneous Coronary Intervention: Description of Procedure: Procedures performed: Left coronary angiography, PCI of the mid LAD with a 2.5 x 15 mm Xience RITCHIE INDICATION: NSTEMI, initial ST elevation with reported improvement HISTORY: Patient is a 60 year old female who presented with abdominal pain. 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 Diagnostic heart catheterization was performed which showed mid LAD 95% stenosis and therefore I was asked to perform PCI of mid LAD. PROCEDURE: After the risks, benefits and alternatives of the above mentioned procedure explained in detail with the patient, informed consent was obtained. Patient was already in the catheterization lab and prepped and draped in usual fashion. A 6Fr sheath had already been placed in the right radial artery. A decision was made to intervene on the LAD. A 6Fr CLS 3.5 guide catheter was used to engage the left main. Heparin was given for an ACT over 250. A 0.014 BMW wire was advanced into the distal vessel without difficulty. The lesion was predilated with a 2.25 x 8 mm balloon. A 2.5 x 15 mm Xience drug-eluting stent was then placed. The wire was then pulled and final angiograms were performed in various views. Preintervention there was 95% stenosis with SANDRITA 3 flow and postintervention there was 0% residual stenosis and SANDRITA 3 flow. The right radial sheath was removed and a TR band was placed with hemostasis achieved. The patient tolerated the procedure well. Patient was transported back to the post catheterization holding area in stable condition. Conscious Sedation: Patient was monitored under the direct supervision of vision of myself for conscious sedation using Versed and fentanyl for a total duration of 44 minutes HEMODYNAMICS: Aortic pressure: 122/78 SELECTIVE CORONARY ANGIOGRAPHY: LEFT MAIN: The left main is a large caliber vessel which bifurcates into the LAD and circumflex. There is no significant stenosis. LEFT ANTERIOR DESCENDING CORONARY ARTERY: LAD is a large caliber vessel which wraps around to the apex. There are mild luminal irregularities and a mid LAD 95% stenosis. There is a moderate caliber "high" diagonal 1 branch without significant stenosis. LEFT CIRCUMFLEX CORONARY ARTERY: Left circumflex is a moderate caliber vessel without significant stenosis.. RIGHT CORONARY ARTERY: Not imaged, see diagnostic report for full details. Conclusions: 1. Coronary artery disease as described above with successful PCI of of the mid LAD with a 2.5 x 15 mm Xience RITCHIE Plan: 1. Aggressive risk factor modification per most recent ACC/AHA guidelines. 2. Continue dual antiplatelets for 12 months.
[2020-08-29 04:18] LABS: African American GFR (CKD) >90 (>60 ml/min/1.73 sqM); Anion Gap 7 mmol/L; Blood Urea Nitrogen 14 mg/dL (7-17); Calcium 9.1 mg/dL (8.4-10.2); Carbon Dioxide 22 mmol/L (22-30); Chloride 112 mmol/L (98-107); Cholesterol 180 mg/dL (<200); Glucose 104 mg/dL (74-99); HDL Cholesterol 32 mg/dL (40-60); LDL Cholesterol,Calculated 84 mg/dL (0-99); Non-African American GFR(CKD) 85 (>60 ml/min/1.73 sqM); Potassium 4.1 mmol/L (3.5-5.1); Sodium 141 mmol/L (137-145); Triglycerides 319 mg/dL (<150)
[2020-08-29 04:22] LABS: Basophils # (A) 0.1 k/uL (0-0.2); Basophils % (A) 0 %; Eosinophils # (A) 0.4 k/uL (0-0.7); Eosinophils % (A) 3 %; HCT 38.1 % (34.0-46.0); HGB 14.1 gm/dL (11.4-16.0); Lymphocytes # (A) 4.5 k/uL (1.0-4.8); Lymphocytes % (A) 34 %; MCH 36.6 pg (25.0-35.0); MCHC 37.1 g/dL (31.0-37.0); MCV 98.7 fL (80.0-100.0); Mean Platelet Volume 7.9; Monocytes # (A) 1.1 k/uL (0-1.0); Monocytes % (A) 8 %; Neutrophils # (A) 7.1 k/uL (1.3-7.7); Neutrophils % (A) 53 %; Platelet Count 302 k/uL (150-450); RBC 3.86 m/uL (3.80-5.40); RDW 13.5 % (11.5-15.5); WBC 13.4 k/uL (3.8-10.6)
[2020-08-29] MEDS: lisinopriL 5 MG TAB PO SCH (08:39)
[2020-08-29] MEDS: FAMOTIDINE 20 MG TAB PO SCH ×2 (08:39→20:14)
[2020-08-29] MEDS: ASPIRIN 81 MG PO SCH (08:39)
[2020-08-29] MEDS: METOPROLOL TARTRATE 25 MG TAB PO SCH ×2 (08:39→20:14)
[2020-08-29] MEDS: TICAGRELOR 90 MG TAB PO SCH ×2 (08:39→20:14)
[2020-08-29] MEDS: HEPARIN SODIUM,PORCINE 5,000 UNIT/ML 1 ML VIAL SQ SCH ×2 (08:40→20:14)
[2020-08-29] MEDS: SODIUM CHLORIDE 0.9% 1,000 ML IV SCH (08:48)
[2020-08-29] MEDS ORDERED: ASPIRIN 325 MG TAB PO SCH (09:00)
--- NOTE | 2020-08-29 10:13 | P.PN ---
Subjective HISTORY OF PRESENTING ILLNESS This is a pleasant 60-year-old female past medical history significant for dyslipidemia and chronic nicotine dependence. 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 She underwent cardiac catheterization yesterday revealing a 99% stenosis in the mid LAD. She underwent successful PCI. Echocardiogram reveals impaired LV systolic function with ejection fraction 35- 40%, mid anterior, mid anterior septal, apical anterior, apical lateral, apical inferior and apical septal wall motion hypokinesia noted. She is seen and examined sitting up in the chair in the intensive care unit. She states she's been up walking without any symptoms of chest or epigastric discomfort. She denies shortness of breath, dizziness or palpitations. Right radial access site is clean, dry with no evidence of hematoma or bleeding. Blood pressure is 111/83 heart rate 82 afebrile maintaining oxygen saturation on room air. Laboratory data reviewed, WBC 13.4, hemoglobin 14.1, platelets 302, sodium 141, potassium 4.1, creatinine 0.76, troponin peak at 6.9. Currently maintained on aspirin 81 mg daily, brilinta 90 mg twice a day, atorvastatin 80 mg daily, lisinopril 5 mg daily, metoprolol 25 mg twice a day. PHYSICAL EXAMINATION CONSTITUTIONAL: No apparent distress. HEENT: Head is normocephalic. Pupils are equal, round. Sclerae anicteric. Mucous membranes of the mouth are moist. No JVD. No carotid bruit. CHEST EXAMINATION: Lungs are clear to auscultation. No chest wall tenderness is noted on palpation or with deep breathing. HEART EXAMINATION: Regular rate and rhythm. S1, S2 heard. No murmurs, gallops or rub. EXTREMITIES: 2+ peripheral pulses, no lower extremity edema and no calf tenderness. ASSESSMENT ST-elevated myocardial infarction Leukocytosis Dyslipidemia Chronic nicotine dependence PLAN Continue current medical regimen. Increase activity as tolerated. Blood pressure is tolerating new medications. Continue to observe for another 24 hours. Lengthy conversation and having the patient regarding planned travel to [place]. We will repeat an echo in the office at her follow-up appointment. Prescription for Brilinta has been sent to the pharmacy. The patient will receive one month for free and then we will transition her to Plavix thereafter. Lengthy discussion had regarding smoking cessation. The patient is agreeable to begin cutting back upon discharge. Nurse Practitioner note has been reviewed, I agree with a documented findings and plan of care. Patient was seen and examined. Objective - Vital Signs Vital signs: Vital Signs Temp 98.1 F 08/29/20 08:00 Pulse 82 08/29/20 08:00 Resp 24 08/29/20 08:00 BP 111/83 08/29/20 08:00 Pulse Ox 95 08/29/20 08:00 Intake & Output 08/28/20 08/29/20 08/29/20 18:59 06:59 18:59 Intake Total 1450 Output Total 1600 1000 Balance -150 -1000 Weight 90.174 kg Intake: IV 800 Sodium Chloride 0.9% 1, 300 000 ml @ 75 mls/hr IV . [id number] [facility] Rx#:[id number] Oral 650 Output: Urine 1600 1000 Other: Voiding Method Toilet Toilet # Voids 1 # Bowel Movements 1 - Labs CBC & Chem 7: 08/29/20 03:26 08/29/20 03:26 Labs: Abnormal Lab Results - Last 24 Hours (Table) 08/28/20 08/28/20 08/28/20 Range/Units 10:15 10:18 13:55 WBC (3.8-10.6) k/uL MCH (25.0-35.0) pg MCHC (31.0-37.0) g/dL Monocytes # (0-1.0) k/uL Chloride (98-107) mmol/L Glucose (74-99) mg/dL POC Glucose (mg/dL) 111 H (75-99) mg/dL Troponin I 1.760 H* 6.980 H* (0.000-0.034) ng/mL Triglycerides (<150) mg/dL HDL Cholesterol (40-60) mg/dL 08/29/20 08/29/20 08/29/20 Range/Units 03:26 03:26 03:26 WBC 13.4 H (3.8-10.6) k/uL MCH 36.6 H (25.0-35.0) pg MCHC 37.1 H (31.0-37.0) g/dL Monocytes # 1.1 H (0-1.0) k/uL Chloride 112 H (98-107) mmol/L Glucose 104 H (74-99) mg/dL POC Glucose (mg/dL) (75-99) mg/dL Troponin I 5.140 H* (0.000-0.034) ng/mL Triglycerides 319 H (<150) mg/dL HDL Cholesterol 32 L (40-60) mg/dL
--- NOTE | 2020-08-29 18:50 | P.PN ---
Subjective This is a pleasant 60 years old female with past medical history of hyperlipidemia and cigarette smoker. Presents because of Joleen sensation sin ce yesterday which became more severe overnight associated with some numbness in her extremity so she came to the emergency room when she found to have a STEMI and "has been called and patient went emergently to cardiac cath. She is status post stent placement to the LAD. Postprocedure she was in the ICU, resting comfortably in bed with at bedside, she is a pleasant with no chest pain or heartburn. No shortness of breath or any other symptom. She admits to smoking about one pack per day, patient consult on was to quit but she declined nicotine patch. No alcohol or illicit drugs Vitals and labs are reviewed. She has mild leukocytosis of 14.7 K. 08/29/2020 Patient is in the ICU, fully awake and oriented. No chest pain or dyspnea, no other complaints. 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 HEENT: No recent visual problems or hearing problems. Denied any sore throat. CARDIOVASCULAR: No orthopnea, PND, no palpitations, no syncope. PULMONARY: No shortness of breath, no cough, no hemoptysis. GASTROINTESTINAL: No diarrhea, no nausea, no vomiting, no abdominal pain. Normoactive bowel sounds. NEUROLOGICAL: No headaches, no weakness, no numbness. HEMATOLOGICAL: Denies any bleeding or petechiae. Active Medications Generic Name Dose Route Start Last Admin Trade Name Freq PRN Reason Stop Dose Admin Al Hydroxide/Mg Hydroxide 30 ml 08/28/20 09:40 Mag Hydrox/Al Hydrox/Simeth 30 Ml Cup PO Q4HR PRN Heartburn Alprazolam 0.25 mg 08/28/20 08:15 Alprazolam 0.25 Mg Tab PO Q6HR PRN Mild Anxiety Alprazolam 0.5 mg 08/28/20 08:15 Alprazolam 0.5 Mg Tab PO Q6HR PRN Moderate Anxiety Aspirin 81 mg 08/29/20 09:00 08/29/20 08:39 Aspirin 81 Mg PO 81 mg DAILY [place] Administration Atorvastatin Calcium 80 mg 08/28/20 21:00 08/28/20 20:00 Atorvastatin 80 Mg Tab PO 80 mg HS [place] Administration Atropine Sulfate 0.5 mg 08/28/20 09:40 Atropine Sulfate 0.1 Mg/Ml 10ml Syringe IV ONCE PRN Symptomatic Bradycardia Famotidine 20 mg 08/28/20 21:00 08/29/20 08:39 Famotidine 20 Mg Tab PO 20 mg Q12HR [place] Administration Heparin Sodium (Porcine) 5,000 unit 08/28/20 21:00 08/29/20 08:40 Heparin Sodium,Porcine 5,000 Unit/Ml 1 Ml Vial SQ 5,000 unit Q12HR [place] Administration Sodium Chloride 1,000 mls @ 75 mls/hr 08/28/20 07:00 08/29/20 08:48 Saline 0.9% IV Not Given .[id number] [place] Lisinopril 5 mg 08/28/20 13:30 08/29/20 08:39 Lisinopril 5 Mg Tab PO 5 mg DAILY [place] Administration Metoprolol Tartrate 25 mg 08/28/20 21:00 08/29/20 08:39 Metoprolol Tartrate 25 Mg Tab PO 25 mg BID [place] Administration Miscellaneous Information 1 each 08/28/20 09:40 Rx Info: Iv Contrast Was Given 1 Each Misc MISCELLANE 08/30/20 09:40 DAILY PRN Per Protocol Nitroglycerin 0.4 mg 08/28/20 09:40 Nitroglycerin Sl Tabs 0.4 Mg Tab SUBLINGUAL Q5M PRN Chest Pain Ticagrelor 90 mg 08/28/20 21:00 08/29/20 08:39 Ticagrelor 90 Mg Tab PO 90 mg BID [place] Administration Zolpidem Tartrate 5 mg 08/28/20 09:40 Zolpidem 5 Mg Tab PO HS PRN Insomnia Objective - Vital Signs Vital signs: Vital Signs Temp 97.8 F 08/29/20 12:00 Pulse 68 08/29/20 12:00 Resp 21 08/29/20 12:00 BP 123/75 08/29/20 12:00 Pulse Ox 98 08/29/20 12:00 Intake & Output 08/28/20 08/29/20 08/29/20 18:59 06:59 18:59 Intake Total 1450 Output Total 1600 1000 Balance -150 -1000 Weight 90.174 kg Intake: IV 800 Sodium Chloride 0.9% 1, 300 000 ml @ 75 mls/hr IV . [id number] [place] Rx#:[id number] Oral 650 Output: Urine 1600 1000 Other: Voiding Method Toilet Toilet # Voids 1 # Bowel Movements 1 - Exam GENERAL: The patient is alert and oriented x3, not in any acute distress. Well developed, well nourished. HEENT: Pupils are round and equally reacting to light. EOMI. No scleral icterus. No conjunctival pallor. Normocephalic, atraumatic. No pharyngeal erythema. No thyromegaly. CARDIOVASCULAR: S1 and S2 present. No murmurs, rubs, or gallops. PULMONARY: Chest is clear to auscultation, no wheezing or crackles. ABDOMEN: Soft, nontender, nondistended, normoactive bowel sounds. No palpable organomegaly. MUSCULOSKELETAL: No joint swelling or deformity. EXTREMITIES: No cyanosis, clubbing, or pedal edema. NEUROLOGICAL: Gross neurological examination did not reveal any focal deficits. SKIN: No rashes. no petechiae. - Labs CBC & Chem 7: 08/29/20 03:26 08/29/20 03:26 Labs: Abnormal Lab Results - Last 24 Hours (Table) 08/29/20 08/29/20 08/29/20 Range/Units 03:26 03:26 03:26 WBC 13.4 H (3.8-10.6) k/uL MCH 36.6 H (25.0-35.0) pg MCHC 37.1 H (31.0-37.0) g/dL Monocytes # 1.1 H (0-1.0) k/uL Chloride 112 H (98-107) mmol/L Glucose 104 H (74-99) mg/dL Troponin I 5.140 H* (0.000-0.034) ng/mL Triglycerides 319 H (<150) mg/dL HDL Cholesterol 32 L (40-60) mg/dL Assessment and Plan Assessment: Acute STEMI, status post cardiac cath and stent placement in the LAD:Continue with dual anti-platelet therapy and cardiology consult recommendation Leukocytosis, mostly reactive secondary to above Minimal infiltrate on the right lung base. We will repeat chest x-ray Nicotine dependence Hyperlipidemia DVT prophylaxis, subcutaneous heparin GI prophylaxis: Pepcid
--- NOTE | 2020-08-29 19:38 | XR ---
EXAMINATION TYPE: XR chest 1V DATE OF EXAM: 08/29/2020 COMPARISON: 08/28/2020 HISTORY: Chest pain TECHNIQUE: FINDINGS: There is no heart failure nor confluent pneumonic infiltrate. Costophrenic angles are clear . There are chest leads. Bony thorax is intact. Heart size is normal. IMPRESSION: No active cardiopulmonary disease. No change.
[2020-08-29] MEDS: ATORVASTATIN 80 MG TAB PO SCH (20:14)
[2020-08-30] MEDS: SODIUM CHLORIDE 0.9% 1,000 ML IV SCH (00:52)
[2020-08-30 04:02] LABS: Basophils # (A) 0.1 k/uL (0-0.2); Basophils % (A) 1 %; Eosinophils # (A) 0.3 k/uL (0-0.7); Eosinophils % (A) 3 %; HCT 42.7 % (34.0-46.0); Lymphocytes # (A) 3.7 k/uL (1.0-4.8); Lymphocytes % (A) 31 %; MCH 32.3 pg (25.0-35.0); MCHC 32.9 g/dL (31.0-37.0); MCV 98.4 fL (80.0-100.0); Mean Platelet Volume 7.7; Monocytes # (A) 0.7 k/uL (0-1.0); Monocytes % (A) 6 %; Neutrophils # (A) 6.9 k/uL (1.3-7.7); Neutrophils % (A) 58 %; Platelet Count 317 k/uL (150-450); RBC 4.34 m/uL (3.80-5.40); RDW 13.2 % (11.5-15.5); WBC 11.9 k/uL (3.8-10.6)
[2020-08-30 04:19] LABS: African American GFR (CKD) >90 (>60 ml/min/1.73 sqM); Anion Gap 6 mmol/L; Blood Urea Nitrogen 14 mg/dL (7-17); Calcium 9.2 mg/dL (8.4-10.2); Carbon Dioxide 23 mmol/L (22-30); Chloride 111 mmol/L (98-107); Glucose 97 mg/dL (74-99); Non-African American GFR(CKD) 89 (>60 ml/min/1.73 sqM); Sodium 140 mmol/L (137-145)
[2020-08-30] MEDS: FAMOTIDINE 20 MG TAB PO SCH (08:39)
[2020-08-30] MEDS: TICAGRELOR 90 MG TAB PO SCH (08:39)
[2020-08-30] MEDS: ASPIRIN 81 MG PO SCH (08:40)
[2020-08-30] MEDS: lisinopriL 5 MG TAB PO SCH (08:40)
[2020-08-30] MEDS: METOPROLOL TARTRATE 25 MG TAB PO SCH (08:40)
[2020-08-30] MEDS: HEPARIN SODIUM,PORCINE 5,000 UNIT/ML 1 ML VIAL SQ SCH (08:43)
[2020-08-30 12:23] VITALS: BP 118/71; PULSE 61; RESP 20; TEMP 98.2
--- NOTE | 2020-08-30 15:57 | P.PN ---
Subjective Progress Note Date: 08/30/20 This 60-year-old female was admitted to the hospital with stuttering OR involving the anterior wall Had a cardiac catheterization and stent placement of the mid LAD. Patient remained stable since that time Denies any chest pain, shortness of breath or dizziness. Tolerating activity. No arrhythmias noted. Patient is being discharged home. Follow-up in the office in one week. We will continue beta blockers, aspirin, Brillinta and lipid-lowering agent Follow-up in the office in one week Objective - Vital Signs Vital signs: Vital Signs Temp 98.2 F 08/30/20 12:00 Pulse 61 08/30/20 12:00 Resp 20 08/30/20 12:00 BP 118/71 08/30/20 12:00 Pulse Ox 96 08/30/20 12:00 Intake & Output 08/29/20 08/30/20 08/30/20 18:59 06:59 18:59 Intake Total 600 Output Total 400 0 Balance 200 0 Weight 84 kg Intake: Oral 600 Output: Urine 400 0 Other: Voiding Method Toilet Toilet Toilet # Voids 3 1 # Bowel Movements 1 - Exam GENERAL EXAM: Patient is alert and oriented and doesn't appear to be in any acute distress HEENT: Normocephalic. Normal reaction of pupils, equal size, normal range of extraocular motion. No erythema or exudates in the throat. NECK: No masses, no nuchal rigidity. CHEST: No chest wall deformity. LUNGS: Equal air entry with no crackles or wheeze. HEART: [S1 and S2 normal with no audible mumurs or gallops. Regular rhythm ABDOMEN: No hepatosplenomegaly, normal bowel sounds, no guarding or rigidity. SKIN: No rashes CENTRAL NERVOUS SYSTEM: No focal deficits. EXTREMITIES: [No cyanosis, clubbing or edema. - Labs CBC & Chem 7: 08/30/20 03:21 08/30/20 03:21 Labs: Abnormal Lab Results - Last 24 Hours (Table) 08/30/20 08/30/20 Range/Units 03:21 03:21 WBC 11.9 H (3.8-10.6) k/uL Chloride 111 H (98-107) mmol/L Assessment and Plan (1) NSTEMI (non-ST elevated myocardial infarction) Status: Acute Code(s): I21.4 - NON-ST ELEVATION (NSTEMI) MYOCARDIAL INFARCTION SNOMED Code(s): 91301609 (2) Hyperlipidemia Status: Acute Code(s): E78.5 - HYPERLIPIDEMIA, UNSPECIFIED SNOMED Code(s): 11209249 Plan: Patient is critically stable. Being discharged home. Follow-up in the office in one week.
--- NOTE | 2020-08-30 23:18 | P.DS ---
Providers Date of admission: 08/28/20 08:06 Attending physician: Richard Pruitt Consults: 08/28/20 08:06 Consult Physician Urgent Consulting Provider: Kely Hall Consult Reason/Comments: epigastric pain, NSTEMI Do you want consulting provider notified?: Already Contacted 08/28/20 09:40 Consult Physician Routine Consulting Provider: [facility] Consult Reason/Comments: Post Interventional patient Do you want consulting provider notified?: Already Contacted Primary care physician: Epi Francis Hospital Course: Diagnoses: Acute STEMI, status post cardiac cath and stent placement in the LAD:Continue with dual anti-platelet therapy and cardiology consult recommendation Leukocytosis, mostly reactive secondary to above Minimal infiltrate on the right lung base. We will repeat chest x-ray Nicotine dependence Hyperlipidemia Hospital course: This is a pleasant 60 years old female with past medical history of hyperlipidemia and cigarette smoker. Presents because of Joleen sensation since yesterday which became more severe overnight associated with some numbness in her extremity so she came to the emergency room when she found to have a STEMI and STEMI code has been called and patient went emergently to cardiac cath. She is status post stent placement to the LAD. Postprocedure she was in the ICU for 2 days for monitoring, She felt improved to the degree that she was eager to go home since yesterday and more today. She denies chest pain or dyspnea or abdominal pain. No nausea vomiting and she tolerated diet well. No change in urine or bowel habits. No fever. Materials Engineer cleared the patient for discharge Patient will be discharged on dual antiplatelet therapy and to participate in his therapy is explained for the patient, also she is on metoprolol, lisinopril and Lipitor Problems and management plan were discussed with the patient and he verbalized understanding and acceptance Patient was found stable and can be discharged home however he needs follow-up as an outpatient. Patient was instructed to follow up with PCP Dr. Calles within one week and patient agrees also patient was instructed to follow up with her intelligence director Dr. Hall within 1-2 weeks and she agrees to call and make appointments as today's weekend. Gen: patient is a AAOx3, no distress CVS: S1-S2, RRR, no murmur Lungs: B/L CTA, no wheezing Abdomen: soft, no distention, no tenderness, positive bowel sounds Extremity: no leg edema or induration Time spent more than 35 minutes Patient Condition at Discharge: Serious Plan - Discharge Summary Discharge Rx Participant: No New Discharge Prescriptions: New Ticagrelor [Brilinta] 90 mg PO BID #180 tab Aspirin 81 mg PO DAILY #30 chew Atorvastatin [Lipitor] 80 mg PO HS #30 tab Metoprolol Tartrate [Lopressor] 25 mg PO BID #60 tab Nitroglycerin Sl Tabs [Nitrostat] 0.4 mg SUBLINGUAL Q5M PRN #20 tab PRN Reason: Chest Pain lisinopriL [Zestril] 5 mg PO DAILY #30 tab Continue Atorvastatin [Lipitor] 10 mg PO HS Discharge Medication List Atorvastatin [Lipitor] 10 mg PO HS 08/28/20 [History] Ticagrelor [Brilinta] 90 mg PO BID #180 tab 08/28/20 [Rx] Aspirin 81 mg PO DAILY #30 chew 08/30/20 [Rx] Atorvastatin [Lipitor] 80 mg PO HS #30 tab 08/30/20 [Rx] Metoprolol Tartrate [Lopressor] 25 mg PO BID #60 tab 08/30/20 [Rx] Nitroglycerin Sl Tabs [Nitrostat] 0.4 mg SUBLINGUAL Q5M PRN #20 tab 08/30/20 [Rx] lisinopriL [Zestril] 5 mg PO DAILY #30 tab 08/30/20 [Rx] Follow up Appointment(s)/Referral(s): Penny Chowdary MD [Primary Care Provider] - 1-2 days (please call office on Saturday 09/01 to schedule appointment) Kely Hall MD [STAFF PHYSICIAN] - 1 Week (please call office on Saturday 09/01 to schedule appointment) Patient Instructions/Handouts: Heart Attack (DC), How to Stop Smoking (DC), Me diterranean Diet (DC) Activity/Diet/Wound Care/Special Instructions: Heart healthy diet Activity is limited until you see your doctor Discharge Disposition: HOME SELF-CARE
== END 2020-08-30 13:05 | disposition home or self-care (01) | DRG 247 ==
LOC: EC 05:53 → 2SICU 08:06
PROVIDERS: ADMIT Hospitalist; ATTEND Hospitalist
PROC: 027034Z Dilation of Coronary Artery, One Artery with Drug-eluting Intraluminal Device, Percutaneous Approach (ICD-10-PCS; principal; 2020-08-28 09:00)
PROC: 4A023N7 Measurement of Cardiac Sampling and Pressure, Left Heart, Percutaneous Approach (ICD-10-PCS; 2020-08-28 09:00)
PROC: B2111ZZ Fluoroscopy of Multiple Coronary Arteries using Low Osmolar Contrast (ICD-10-PCS; 2020-08-28 09:00)
DX: I21.4 Non-ST elevation (NSTEMI) myocardial infarction (principal); E78.5 Hyperlipidemia, unspecified; F17.210 Nicotine dependence, cigarettes, uncomplicated; I25.10 Atherosclerotic heart disease of native coronary artery without angina pectoris; D72.829 Elevated white blood cell count, unspecified; K57.90 Diverticulosis of intestine, part unspecified, without perforation or abscess without bleeding; Z88.5 Allergy status to narcotic agent; Z79.02 Long term (current) use of antithrombotics/antiplatelets; Z79.82 Long term (current) use of aspirin; Z79.899 Other long term (current) drug therapy; Z90.49 Acquired absence of other specified parts of digestive tract; Z80.1 Family history of malignant neoplasm of trachea, bronchus and lung
CPT/HCPCS: 36415; 71045; 71046; 74177; 80048; 80053; 80061; 81001; 82150; 83690; 84484; 85025; 85347; 93005; 93306; 93458; 96361; 96374; 99285